=== PATIENT | male | born 1975 | race Caucasian/White ===

== ENCOUNTER 2023-03-28 14:24 | Outpatient (CLI) | payer OTHER | END 2023-03-28 14:25 | disposition home or self-care (01) | LOC: CSHWCC 14:24 | PROVIDERS: ATTEND Nurse Practitioner Family | DX: R60.0 Localized edema (principal); L97.922 Non-pressure chronic ulcer of unspecified part of left lower leg with fat layer exposed | CPT/HCPCS: 11042; 29581; 87070; 87077; 87205; 99203; G0463 ==